=== PATIENT | male | born 1955 | race Caucasian/White ===

== ENCOUNTER → 2019-11-03 | Day surgery (SDC) | payer BC ==
[2019-11-01 12:23] VITALS: BMI 32.3
[~2019-11-03] MED LIST: LACTATED RINGERS 1,000 ML IV ONE; LIDOCAINE 1% 20 ML VIAL (10MG/ML) FOR IV START INTRADERMA ONE; LIDOCAINE 1% INJ 10MG/ML (20 ML MDV) ONE; PROPOFOL 10 MG/ML 20 ML VIAL IV ONE
[2019-11-03 07:25] VITALS: RESP 16; TEMP 98.8
--- NOTE | 2019-11-03 07:53 | P.GSHP ---
History of Present Illness H&P Date: 11/03/19 Chief Complaint: Colon cancer screening 64-year-old male here today for screening colonoscopy. Last colonoscopy for 10 years ago. No family history of colon cancer. No bowel related issues. Past Medical History Past Medical History: Hyperlipidemia History of Any Multi-Drug Resistant Organisms: None Reported Past Surgical History: Orthopedic Surgery, Tonsillectomy Additional Past Surgical History / Comment(s): colonoscopy, arthroscopy left knee x2, ORIF right femur w/dom Past Anesthesia/Blood Transfusion Reactions: Postoperative Nausea & Vomiting (PONV) Smoking Status: Never smoker Medications and Allergies Home Medications Medication Instructions Recorded Confirmed Type Aspirin 81 mg PO DAILY 11/01/19 11/01/19 History Simvastatin [Zocor] 40 mg PO HS 11/01/19 11/03/19 History Allergies Allergy/AdvReac Type Severity Reaction Status Date / Time No Known Allergies Allergy Verified 11/01/19 11:43 Surgical - Exam Vital Signs Temp Pulse Resp BP Pulse Ox 98.8 F 69 16 187/93 95 11/03/19 07:21 11/03/19 07:21 11/03/19 07:21 11/03/19 07:21 11/03/19 07:21 Physical exam: General: Well-developed, well-nourished HEENT: Normocephalic, sclerae nonicteric Abdomen: Nontender, nondistended Extremities: No edema Neuro: Alert and oriented Assessment and Plan (1) Colon cancer screening Narrative/Plan: Will proceed with colonoscopy at this time Current Visit: Yes Status: Acute Code(s): Z12.11 - ENCOUNTER FOR SCREENING FOR MALIGNANT NEOPLASM OF COLON SNOMED Code(s): 153663274
--- NOTE | 2019-11-03 08:14 | P.PCN ---
Date of Procedure: 11/03/19 Procedure(s) Performed: PREOPERATIVE DIAGNOSIS: Colon cancer screening POSTOPERATIVE DIAGNOSIS: Descending colon polyp, rectal polyp, diverticulosis PROCEDURE: Colonoscopy snare polypectomy ANESTHESIA: MAC SURGEON: Carlos Manuel Cochran M.D. SPECIMENS: Polyps ENDOSCOPIC PROCEDURE: The patient was placed on the endoscopy table in the left decubitus position. The Olympus colonoscope was inserted into the anus and passed under direct visualization to the base of the cecum. The appendiceal orifice was visualized. From that point the scope was slowly withdrawn inspecting all surfaces carefully. There were no neoplastic inflammatory or polypoid lesions throughout the cecum, ascending, and transverse colon. In the descending colon a small polyp was identified and removed using the snare technique. The snare went through this polyp before cautery was utilized. No significant bleeding was seen. The sigmoid colon appeared normal. In the proximal rectum another small polyp was identified and removed using the snare with cautery technique. The remainder of the rectum was normal. The patient had extensive diverticulosis throughout the left colon. Digital rectal examination was normal. The patient was taken to the recovery room in stable condition per anesthesia guidelines. RECOMMENDATIONS: Await biopsy results. Anticipate follow-up colonoscopy 5 years.
[2019-11-03 08:18] VITALS: PULSE 67
[2019-11-03 08:35] VITALS: BP 124/69
== END ==
LOC: ORWHC2ENDO 07:01
PROVIDERS: ATTEND Surgery
DX: Z12.11 Encounter for screening for malignant neoplasm of colon (principal); D12.4 Benign neoplasm of descending colon; D12.8 Benign neoplasm of rectum; K57.30 Diverticulosis of large intestine without perforation or abscess without bleeding; E78.5 Hyperlipidemia, unspecified; Z79.82 Long term (current) use of aspirin; Z79.899 Other long term (current) drug therapy
CPT/HCPCS: 88305; 45385; J2001; J2704